=== PATIENT | male | born 1985 | race Caucasian/White ===

== ENCOUNTER 2025-06-07 20:06 | Emergency (ER) | payer BC | END 2025-06-07 21:06 | disposition home or self-care (01) | LOC: MW.ED 20:06 | DX: L03.114 Cellulitis of left upper limb (principal); F17.200 Nicotine dependence, unspecified, uncomplicated; Z79.899 Other long term (current) drug therapy | CPT/HCPCS: 73070; 99283; A9270; 99282 ==

== ENCOUNTER 2025-06-17 18:24 | Emergency (ER) | payer BC | END 2025-06-17 20:21 | disposition home or self-care (01) | LOC: MW.ED 18:24 | DX: M71.9 Bursopathy, unspecified (principal); L03.90 Cellulitis, unspecified; Z79.899 Other long term (current) drug therapy | CPT/HCPCS: 99282; 99283 ==